=== PATIENT | female | born 1965 | race Caucasian/White ===

== ENCOUNTER 2017-03-23 10:16 | Emergency (ER) | payer MEDICAID ==
[2017-03-23 10:26] VITALS: BMI 39.7
[2017-03-23 10:28] VITALS: BP 124/74; PULSE 86; RESP 18; TEMP 98.2; O2SAT 98
[2017-03-23 11:26] LABS: RBC URINE 37 /hpf (0-3); URINE BACTERIA OCC (<OCC); URINE BILIRUBIN NEGATIVE (NEGATIVE); URINE BLOOD MODERATE (NEGATIVE); URINE COLOR YELLOW (YELLOW); URINE GLUCOSE (UA) 50 mg/dL (Normal); URINE KETONE NEGATIVE (NEGATIVE); URINE LEUKOCYTE ESTERASE LARGE Leu/uL (Negative); URINE PROTEIN 30 mg/dL (NEGATIVE); URINE UROBILINOGEN 0.2-1.0 mg/dL (0.2-1.0); WBC URINE 150 /hpf (0-5)
--- NOTE | 2017-03-23 12:25 | ED PDOC ---
HPI: Female Pain Time Seen by Provider: 03/23/17 10:49 Chief Complaint (Nursing): Groin Pain Chief Complaint (Provider): Groin pain History Per: Patient History/Exam Limitations: no limitations Associated Symptoms: denies: Fever, Back Pain Additional Complaint(s): Patient is a 51 year old female who presents to the ED for groin pain that started four days ago and is worse upon motion of the right leg. Patient also complains of dysuria that started today. Denies fever, back pain, and weakness. PCP: none provided. Past Medical History Reviewed: Historical Data, Nursing Documentation, Vital Signs Vital Signs: Last Vital Signs Temp 98.2 F 03/23/17 10:27 Pulse 86 03/23/17 10:27 Resp 18 03/23/17 10:27 BP 124/74 03/23/17 10:27 Pulse Ox 98 03/23/17 10:27 - Medical History PMH: Asthma, HTN Denies: HIV, Chronic Kidney Disease - Surgical History Surgical History: Cholecystectomy Other surgeries: partial hysterectomy - Family History Family History: States: Unknown Family Hx - Living Arrangements Living Arrangements: With Family - Social History Current smoker - smoking cessation education provided: No - Home Medications Home Medications: Ambulatory Orders Medication Instructions Recorded Fluticasone/Salmeterol 250/50 1 puff IH Q12 PRN 08/12/15 [Advair Diskus 250/50] Ibuprofen 600 mg PO Q6 PRN 08/12/15 Montelukast [Singulair] 10 mg PO BID 08/12/15 oxyCODONE/Acetaminophen [Percocet 5 - 325 mg Q4 PRN 08/12/15 5/325 mg Tab] Ciprofloxacin [Cipro] 500 mg PO BID #14 tab 03/23/17 Naproxen [Naprosyn] 500 mg PO BID PRN #14 tablet 03/23/17 - Allergies Allergies/Adverse Reactions: Allergies Allergy/AdvReac Type Severity Reaction Status Date / Time strawberry Allergy RASH Verified 03/23/17 10:34 Review of Systems ROS Statement: Except As Marked, All Systems Reviewed And Found Negative Constitutional: Negative for: Fever, Weakness Genitourinary Female: Positive for: Dysuria Musculoskeletal: Negative for: Back Pain Neurological: Negative for: Weakness Physical Exam - Reviewed Nursing Documentation Reviewed: Yes Vital Signs Reviewed: Yes - Physical Exam Appears: Positive for: Well, Non-toxic, No Acute Distress Head Exam: Positive for: ATRAUMATIC, NORMAL INSPECTION, NORMOCEPHALIC Skin: Positive for: Normal Color, Warm, DRY Eye Exam: Positive for: EOMI, Normal appearance, PERRL Neck: Positive for: Normal, Painless ROM, Supple Cardiovascular/Chest: Positive for: Regular Rate, Rhythm Respiratory: Positive for: CNT, Normal Breath Sounds Gastrointestinal/Abdominal: Positive for: Normal Exam, Bowel Sounds, Soft. Negative for: Tenderness Extremity: Positive for: Other (+R upper thigh tenderness/ groin, no hernia, no hernia, no induration) Neurologic/Psych: Positive for: Alert (Tenderness on right leg/groin area), Oriented, Gait (stable). Negative for: Aphasia - ECG O2 Sat by Pulse Oximetry: 98 (RA) Pulse Ox Interpretation: Normal Medical Decision Making Medical Decision Making: Initial plan: * Urine dipstick * Urine Culture * Cipro * Reevaluation Improved in ED, Rx explained and followup instructions understood. Ambulating in ED without difficulty. Disposition - Clinical Impression Clinical Impression: UTI (urinary tract infection), Groin strain - Patient ED Disposition Is Patient to be Admitted: No Doctor Will See Patient In The: Office Counseled Patient/Family Regarding: Studies Performed, Diagnosis, Need For Followup, Rx Given - Disposition Referrals: Aleksandar Santiago MD [Medical Doctor] - Disposition: Routine/Home Disposition Time: 12:08 Condition: STABLE Additional Instructions: Return to ER for any worse or new symptoms. Prescriptions: Ciprofloxacin [Cipro] 500 mg PO BID #14 tab Naproxen [Naprosyn] 500 mg PO BID PRN #14 tablet PRN Reason: Pain, Moderate (4-7) Instructions: Urinary Tract Infection in Women (ED), Groin Strain (ED) Forms: [employer] (Haitian)
== END 2017-03-23 12:49 | disposition home or self-care (01) ==
LOC: H.ER 10:16
DX: N39.0 Urinary tract infection, site not specified (principal)
CPT/HCPCS: 81003; 81025; 87086; 96372; 99282; J1885